=== PATIENT | male | born 1945 | race Caucasian/White ===

== ENCOUNTER 2017-11-01 00:37 | Outpatient (CLI) | payer MEDICARE, SELFPAY ==
--- NOTE | 2017-11-01 10:00 | DI.US_ITS ---
SYMPTOMS/DIAGNOSIS: PAIN, NERVE BLOCK PAIN CLINIC NEEDLE GUIDANCE: Sonography was utilized by Dr. Leslie during the performance of a right lateral femoral cutaneous nerve block. Please refer to the procedure report for complete details.
[2017-11-01 10:12] VITALS: BP 132/83; PULSE 67; RESP 20; TEMP 37.2; O2SAT 94
[2017-11-01] MEDS: methylPREDNISolone ACETATE 40 MG/ML VIAL IJ (11:06)
[2017-11-01] MEDS: Bupivacaine 0.5% Pres-Free 30 ML VIAL IJ (11:09)
[2017-11-01 11:13] VITALS: BP 123/72; PULSE 68; RESP 16; O2SAT 97
--- NOTE | 2017-11-01 11:17 | PDOC.PAIN ---
Pain Clinic Procedure Note Current Active Problems Problem Status Onset Meralgia paresthetica of right side Chronic ULTRASOUND GUIDED {RIGHT LATERAL FEMORAL CUTANEOUS INJECTIONS Pre-Procedural Evaluation: MERA BHANDARI has been referred to the [facility] for an Ultrasound Guided {right/lateral femoral cutaneous injection injection for a chief complaint of right lateral thigh pain. Pre-procedure Pain ScoreL {2/10 Patient was interviewed and the medical record reviewed. There were no medical, pharmacologic, radiographic, or other structural contraindications to preforming an ultrasound guided injection. Risks and expected side effects as well as potential benefits of the procedure were reviewed. The patient consent form was signed and witnessed. Standard time-out procedure was performed. The use of direct ultrasound visualization of the needle (rather than a non-guided injection) was required to increase patient safety by excluding inadvertent intramuscular, intratendinous, or intraneural needle placement and minimizing bleeding by avoiding osteochondral or vascular injury from the needle. Additionally, the increased accuracy of placement may increase clinical effectiveness and will allow higher diagnostic specificity when evaluating effectiveness of this injection. Procedure Description: The patient was placed in the {supine} position and automated blood pressure cuff and pulse oximeter applied for monitoring during the procedure and recorded in the medical record. Pre-injection ultrasound scanning of the area of interest was performed using {high-frequency US TRANSDUCER} transducer, identifying relevant anatomy, landmarks, and neurovascular structures allowing for optimal needle path. The site was then prepared in the usual sterile fashion, using thorough Chlorhexadine preparation of the skin and sterile draping. The same ultrasound transducer was then passed into the sterile field using sterile probe cover and sterile ultrasound gel. The injection target was again visualized. (Right sartorius muscle was identified with lateral femoral cutaneous nerve identified lateral to that) Skin and subcutaneous tissues were anesthetized with {1 } mL of 1% Lidocaine. A { 22/ guage needle} inch needle was placed under live ultrasound guidance, using an {in-plane} approach, to the target area. After visualization of the needle tip at the target area, a mixture of 3 mL's 0.5% bupivacaine} and 1 mL {40 mg Depo-Medrol}, totaling 4 mL of injectate was delivered after negative aspiration for blood. Ultrasound images were captured and stored for documentation purposes. Post-procedure Pain Score: {1/10 Vital signs were stable throughout the procedure and were as recorded in the docflowsheet by the nursing staff. Follow up plans and appointments were discussed with the patient.Post procedure instruction was given as documented in nursing documentation and having met discharge criteria, they were discharged from the [facility] Management [facility]. COMMENTS: Patient will follow-up as needed. He is complaining of bilateral knee pain. He had a right total knee replacement. He does not not want to have this done on the left side because of the results on the right side. I am going to have him follow-up with Dr. Morrison for evaluation and possible injection into the left knee.
--- NOTE | 2017-11-01 11:24 | PDOC.PAIN_ITS ---
Pain Clinic Procedure Note Current Active Problems Problem Status Onset Meralgia paresthetica of right side Chronic ULTRASOUND GUIDED {RIGHT LATERAL FEMORAL CUTANEOUS INJECTIONS Pre-Procedural Evaluation: MERA BHANDARI has been referred to the [facility] for an Ultrasound Guided {right/lateral femoral cutaneous injection injection for a chief complaint of right lateral thigh pain. Pre-procedure Pain ScoreL {2/10 Patient was interviewed and the medical record reviewed. There were no medical , pharmacologic, radiographic, or other structural contraindications to preforming an ultrasound guided injection. Risks and expected side effects as well as potential benefits of the procedure were reviewed. The patient consent form was signed and witnessed. Standard time-out procedure was performed. The use of direct ultrasound visualization of the needle (rather than a non- guided injection) was required to increase patient safety by excluding inadvertent intramuscular, intratendinous, or intraneural needle placement and minimizing bleeding by avoiding osteochondral or vascular injury from the needle. Additionally, the increased accuracy of placement may increase clinical effectiveness and will allow higher diagnostic specificity when evaluating effectiveness of this injection. Procedure Description: The patient was placed in the {supine} position and automated blood pressure cuff and pulse oximeter applied for monitoring during the procedure and recorded in the medical record. Pre-injection ultrasound scanning of the area of interest was performed using { high-frequency US TRANSDUCER} transducer, identifying relevant anatomy, landmarks, and neurovascular structures allowing for optimal needle path. The site was then prepared in the usual sterile fashion, using thorough Chlorhexadine preparation of the skin and sterile draping. The same ultrasound transducer was then passed into the sterile field using sterile probe cover and sterile ultrasound gel. The injection target was again visualized. (Right sartorius muscle was identified with lateral femoral cutaneous nerve identified lateral to that) Skin and subcutaneous tissues were anesthetized with {1 } mL of 1% Lidocaine. A { 22/ guage needle} inch needle was placed under live ultrasound guidance, using an {in-plane} approach, to the target area. After visualization of the needle tip at the target area, a mixture of 3 mL's 0.5% bupivacaine} and 1 mL { 40 mg Depo-Medrol}, totaling 4 mL of injectate was delivered after negative aspiration for blood. Ultrasound images were captured and stored for documentation purposes. Post-procedure Pain Score: {1/10 Vital signs were stable throughout the procedure and were as recorded in the docflowsheet by the nursing staff. Follow up plans and appointments were discussed with the patient.Post procedure instruction was given as documented in nursing documentation and having met discharge criteria, they were discharged from the [facility] Management [facility]. COMMENTS: Patient will follow-up as needed. He is complaining of bilateral knee pain. He had a right total knee replacement. He does not not want to have this done on the left side because of the results on the right side. I am going to have him follow-up with Dr. Morrison for evaluation and possible injection into the left knee.
== END 2017-11-01 00:57 ==
PROVIDERS: PCP Internal Medicine; Visit Provider Anesthesiology Pain Medicine
DX: G57.11 Meralgia paresthetica, right lower limb (principal)
CPT/HCPCS: 64450; 76942; J1030

== ENCOUNTER 2017-12-14 12:36 | Outpatient (CLI) | payer MEDICARE, SELFPAY ==
[2017-12-14 12:42] VITALS: BP 122/73; PULSE 74; RESP 18; TEMP 36.9; O2SAT 96
--- NOTE | 2017-12-14 13:08 | DI.US_ITS ---
SYMPTOMS/DIAGNOSIS: RT THIGH PAIN, RT LATERAL FEMORAL CUTANEOUS NERVE INJECTION ULTRASOUND GUIDANCE FOR PAIN CLINIC: Images submitted from the pain clinic were carried out in conjunction with ultrasound needle guidance in conjunction with a right lateral femoral cutaneous nerve injection. Please see Dr. Leslie's report for further information.
[2017-12-14] MEDS: methylPREDNISolone ACETATE 40 MG/ML VIAL IJ (13:24)
--- NOTE | 2017-12-14 13:24 | PDOC.PAIN ---
Pain Clinic Procedure Note Current Active Problems Problem Status Onset Meralgia paresthetica of right side Chronic ULTRASOUND GUIDED {RIGHT LATERAL FEMORAL CUTANEOUS NERVE INJECTION Pre-Procedural Evaluation: MERA BHANDARI has been referred to the [facility] for an Ultrasound Guided {right LATERAL FEMORAL CUTANEOUS NERVE INJECTION injection for a chief complaint of right thigh pain and numbness with a diagnosis of meralgia paresthetica. Pre-procedure Pain ScoreL {6/10 Patient was interviewed and the medical record reviewed. There were no medical, pharmacologic, radiographic, or other structural contraindications to preforming an ultrasound guided injection. Risks and expected side effects as well as potential benefits of the procedure were reviewed. The patient consent form was signed and witnessed. Standard time-out procedure was performed. The use of direct ultrasound visualization of the needle (rather than a non-guided injection) was required to increase patient safety by excluding inadvertent intramuscular, intratendinous, or intraneural needle placement and minimizing bleeding by avoiding osteochondral or vascular injury from the needle. Additionally, the increased accuracy of placement may increase clinical effectiveness and will allow higher diagnostic specificity when evaluating effectiveness of this injection. Procedure Description: The patient was placed in the {supine} position and automated blood pressure cuff and pulse oximeter applied for monitoring during the procedure and recorded in the medical record. Pre-injection ultrasound scanning of the area of interest was performed using {high-frequency US TRANSDUCER} transducer, identifying relevant anatomy, landmarks, and neurovascular structures allowing for optimal needle path. The site was then prepared in the usual sterile fashion, using thorough Chlorhexadine preparation of the skin and sterile draping. The same ultrasound transducer was then passed into the sterile field using sterile probe cover and sterile ultrasound gel. The injection target was again visualized. The lateral cutaneous nerve was identified at the lateral edge of the sartorius muscle Skin and subcutaneous tissues were anesthetized with {1 mL of 1% Lidocaine. A { 22 guage needle} inch needle was placed under live ultrasound guidance, using an {in-plane} approach, to the target area. After visualization of the needle tip at the target area, a mixture of 4 mL {0.5% bupivacaine } and 1 mL {40 mg Depo-Medrol}, totaling 5 mL of injectate was delivered after negative aspiration for blood. Ultrasound images were captured and stored for documentation purposes. Post-procedure Pain Score: {0/10 Vital signs were stable throughout the procedure and were as recorded in the docflowsheet by the nursing staff. Follow up plans and appointments were discussed with the patient.Post procedure instruction was given as documented in nursing documentation and having met discharge criteria, they were discharged from the [facility] Management [facility]. COMMENTS: Patient will follow-up as needed. Long-lasting relief could repeat if not we will discuss other options or consideration for DRG or peripheral nerve stimulation
[2017-12-14] MEDS: Bupivacaine 0.5% Pres-Free 30 ML VIAL IJ (13:25)
[2017-12-14 13:26] VITALS: BP 126/77; PULSE 87; RESP 17; O2SAT 94
--- NOTE | 2017-12-14 13:29 | PDOC.PAIN_ITS ---
Pain Clinic Procedure Note Current Active Problems Problem Status Onset Meralgia paresthetica of right side Chronic ULTRASOUND GUIDED {RIGHT LATERAL FEMORAL CUTANEOUS NERVE INJECTION Pre-Procedural Evaluation: MERA BHANDARI has been referred to the [facility] for an Ultrasound Guided {right LATERAL FEMORAL CUTANEOUS NERVE INJECTION injection for a chief complaint of right thigh pain and numbness with a diagnosis of meralgia paresthetica. Pre-procedure Pain ScoreL {6/10 Patient was interviewed and the medical record reviewed. There were no medical , pharmacologic, radiographic, or other structural contraindications to preforming an ultrasound guided injection. Risks and expected side effects as well as potential benefits of the procedure were reviewed. The patient consent form was signed and witnessed. Standard time-out procedure was performed. The use of direct ultrasound visualization of the needle (rather than a non- guided injection) was required to increase patient safety by excluding inadvertent intramuscular, intratendinous, or intraneural needle placement and minimizing bleeding by avoiding osteochondral or vascular injury from the needle. Additionally, the increased accuracy of placement may increase clinical effectiveness and will allow higher diagnostic specificity when evaluating effectiveness of this injection. Procedure Description: The patient was placed in the {supine} position and automated blood pressure cuff and pulse oximeter applied for monitoring during the procedure and recorded in the medical record. Pre-injection ultrasound scanning of the area of interest was performed using { high-frequency US TRANSDUCER} transducer, identifying relevant anatomy, landmarks, and neurovascular structures allowing for optimal needle path. The site was then prepared in the usual sterile fashion, using thorough Chlorhexadine preparation of the skin and sterile draping. The same ultrasound transducer was then passed into the sterile field using sterile probe cover and sterile ultrasound gel. The injection target was again visualized. The lateral cutaneous nerve was identified at the lateral edge of the sartorius muscle Skin and subcutaneous tissues were anesthetized with {1 mL of 1% Lidocaine. A { 22 guage needle} inch needle was placed under live ultrasound guidance, using an {in-plane} approach, to the target area. After visualization of the needle tip at the target area, a mixture of 4 mL {0.5% bupivacaine } and 1 mL {40 mg Depo-Medrol}, totaling 5 mL of injectate was delivered after negative aspiration for blood. Ultrasound images were captured and stored for documentation purposes. Post-procedure Pain Score: {0/10 Vital signs were stable throughout the procedure and were as recorded in the docflowsheet by the nursing staff. Follow up plans and appointments were discussed with the patient.Post procedure instruction was given as documented in nursing documentation and having met discharge criteria, they were discharged from the [facility] Management [facility]. COMMENTS: Patient will follow-up as needed. Long-lasting relief could repeat if not we will discuss other options or consideration for DRG or peripheral nerve stimulation
== END 2017-12-14 12:56 ==
PROVIDERS: PCP Internal Medicine; Visit Provider Anesthesiology Pain Medicine
DX: G57.11 Meralgia paresthetica, right lower limb (principal); G89.29 Other chronic pain
CPT/HCPCS: 64450; 76942; J1030

== ENCOUNTER 2020-04-10 02:41 | Outpatient (CLI) | payer MEDICARE, SELFPAY ==
--- NOTE | 2020-04-10 | DI.MRI_ITS ---
EXAM: MR LUMBAR SPINE WO CLINICAL HISTORY: INTERVERTEBRAL DISC DISORDER WITH RADICULOPATHY,M51.16. TECHNIQUE: Multiplanar multisequence MRI of the Lumbar spine was performed. COMPARISON: MR MRI - LUMBAR SPINE WO CONTRAST from 05/10/2016 MR MR L-SPINE W/O from 05/10/2016 FINDINGS: Bones: The last intervertebral disc space is designated the L5/S1 level for the numbering purpose of this examination. The vertebral body heights are well maintained. Alignment is satisfactory. There is a hemangioma in the L3 vertebral body. Endplate degenerative signal changes are seen at multiple levels of the lumbar spine. Cord: The conus tip ends at the L1 level. It is of normal size and signal intensity. T12-L1: No disc herniations or bulges are present. No central spinal canal or neural foraminal stenos is. L1-2: No disc herniations or bulges are present. No central spinal canal or neural foraminal stenosis . L2-3: There is a mild diffuse disc bulge. No central spinal canal or neural foraminal stenosis. L3-4: Mild diffuse disc bulge. No significant central spinal canal stenosis. Mild bilateral narrowi ng of the neural foramen. L4-5: There is a diffuse disc bulge. There are hypertrophic changes of the facets and ligamentum fla vum. The findings contribute to cause moderate central spinal canal stenosis. There is moderate rig ht and mild left neural foraminal stenosis. L5-S1: No disc herniations or bulges are present. No central spinal canal or neural foraminal stenosi s.Mild hypertrophic changes of the facets are noted. Soft tissues: The visualized SI joints and sacrum are well maintained. The paraspinal soft tissues ar e unremarkable. Note is made of multiple right renal cysts. The largest measures 2 cm. It is unchan ged compared to the prior examination. No further workup is recommended. IMPRESSION: Multilevel degenerative changes in the lumbar spine resulting in central spinal canal neural foramina l stenosis as described above. The findings are most marked at the L4-5 disc level as described abov e. DATA REPOSITORY:
== END 2020-04-10 03:01 ==
PROVIDERS: PCP Nurse Practitioner; Visit Provider Anesthesiology Pain Medicine
DX: M47.26 Other spondylosis with radiculopathy, lumbar region (principal)
CPT/HCPCS: 72148

== ENCOUNTER 2021-11-05 10:32 | Outpatient (CLI) | payer MEDICARE, SELFPAY ==
--- NOTE | 2021-11-05 06:00 | DI.RAD_ITS ---
Exam(s) XR PAIN CLINIC LUMBAR SP 2V EXAM: XR PAIN CLINIC LUMBAR SP 2V CLINICAL HISTORY: Dx: Lumbar Spondylosis TECHNIQUE: 2D and realtime digital imaging was performed. CONTRAST MATERIAL: Refer to procedure report. COMPARISON: No exams were available for comparison FINDINGS: Fluoroscopy was provided for Dr. Garcia during the performance of a lumbar medial branch block. Blanca small refer to the procedure report for complete details. Ka,r=20.6 mGy IMPRESSION:
[2021-11-05 10:44] VITALS: BP 140/78; PULSE 84; RESP 20; TEMP 37; O2SAT 99
--- NOTE | 2021-11-05 11:20 | PDOC.PAIN_ITS ---
Pain Clinic Procedure Note Procedure Note Procedure Note: Lumbar/Sacral Medial Branch Blocks MERA BHANDARI has been referred to the [facility] for lumbar/sacral medial branch blocks. COMMENTS: He was seen by Dr. Leslie at . I spoke to Dr. Leslie, who wanted this diagnostic procedure completed. The patient preferred to come here as opposed to . Pre-procedure pain VAS was 8/10. Dx: Lumbosacral spondylosis without myelopathy Patient was interviewed and the medical record reviewed. There were no medical, pharmacologic, radiographic or other structural contraindications to attempting fluoroscopically guided local anesthetic lumbar/sacral medial branch blocks. Risks and expected side effects as well as potential benefit of the procedure were reviewed and voiced concerns addressed. The printed consent form was signed and witnessed. Standard time-out procedure was performed. Patient was placed in the prone position on the fluoroscopy table and automated blood pressure cuff and pulse oximeter applied. The skin entry points for approaching the anatomic target points of the segmental medial branches of bilateral L3, L4, and L5DR were identified with fluoroscopy and marked. Following thorough Chlorhexadine preparation of the skin and draping and 1% lidocaine infiltration of the skin entry points and subcutaneous tissues, a 25 gauge 3.5 spinal needle was placed under fluoroscopic guidance down on to the target point for each respective segmental medial branch.Position was confirmed in A/P, oblique and lateral views with 0.25ml of omnipaque 240. At this point I injected 0.5ml of 0.5% Bupivacaine at each segmental sensory nerve. Vital signs were stable throughout the procedure and were as recorded in the docflowsheet by the nursing staff. Follow up plans and appointments were discussed and was instructed to keep careful note of how the usual pain was modified by these injections. Specifically was asked to keep a pain diary for the next 24 hours using a numeric pain scale of 0-10 and report these results at the follow-up visit. Post procedure instruction was given as documented in the nursing documentation and having met discharge criteria. Patient was discharged from the Pain Management Center. Based on the medial branches blocked today, if the patient has adequate relief and we are able to proceed to radiofrequency ablation, the treatment should result in the denervation of the bilateral L4-L5 and L5-S1 FACET JOINTS. We would expect to denervate a total of 4 facets during the radiofrequency ablation. COMMENTS: Post-procedure pain VAS was 4/10. Hal Mansfield, DO, MPH [facility]-Pain Management [facility] CC: Mary Dodson
[2021-11-05] MEDS: Bupivacaine 0.5% Pres-Free 10 ML VIAL IJ (11:30)
[2021-11-05] MEDS: Omnipaque 240 MG/ML 50 ML BTL IJ (11:30)
[2021-11-05 11:31] VITALS: BP 130/73; PULSE 83; RESP 22; O2SAT 94
== END 2021-11-05 10:33 | disposition home or self-care (01) ==
LOC: PC 10:33
PROVIDERS: PCP Nurse Practitioner; Visit Provider Preventive Medicine Occupational Medicine
DX: M47.817 Spondylosis without myelopathy or radiculopathy, lumbosacral region (principal)
CPT/HCPCS: 64493; 64494; 72100; Q9967

== ENCOUNTER 2021-12-03 10:54 | Outpatient (CLI) | payer MEDICARE, SELFPAY ==
--- NOTE | 2021-12-03 06:00 | DI.RAD_ITS ---
Exam(s) XR PAIN CLINIC LUMBAR SP 2V EXAM: XR PAIN CLINIC LUMBAR SP 2V CLINICAL HISTORY: Dx: Lumbar Spondylosis TECHNIQUE: 2D and realtime digital imaging was performed. CONTRAST MATERIAL: Refer to procedure report. COMPARISON: No exams were available for comparison FINDINGS: Fluoroscopy was provided for Dr. Garcia during the performance of a lumbar injections. Please refer t o the procedure report for complete details. Ka,r=16 mGy IMPRESSION:
[2021-12-03 11:28] VITALS: BP 143/83; PULSE 69; RESP 20; TEMP 36.5; O2SAT 95
[2021-12-03] MEDS: Omnipaque 240 MG/ML 50 ML BTL IJ (12:16)
[2021-12-03] MEDS: Lidocaine 2% Pres-Free 5 ML VIAL IJ (12:16)
[2021-12-03 12:17] VITALS: BP 138/78; PULSE 73; RESP 22; O2SAT 96
--- NOTE | 2021-12-07 14:04 | PDOC.PAIN_ITS ---
Date of service: 12/03/21 Time of Service: 13:00 Pain Clinic Procedure Note Procedure Note Procedure Note: Lumbar/Sacral Medial Branch Blocks Liam Baker has been referred to the Pain Management Center for lumbar/sacral medial branch blocks. COMMENTS: He did very well with his first LMBBs. Pre-procedure pain VAS = 6/10. Dx: Lumbosacral spondylosis without myelopathy Patient was interviewed and the medical record reviewed. There were no medical, pharmacologic, radiographic or other structural contraindications to attempting fluoroscopically guided local anesthetic lumbar/sacral medial branch blocks. Risks and expected side effects as well as potential benefit of the procedure were reviewed and voiced concerns addressed. The printed consent form was signed and witnessed. Standard time-out procedure was performed. Patient was placed in the prone position on the fluoroscopy table and automated blood pressure cuff and pulse oximeter applied. The skin entry points for approaching the anatomic target points of the segmental medial branches of bilateral L3-L5 were identified with anfluoroscopy and marked. Following thorough Chlorhexadine preparation of the skin and draping and 1% lidocaine infiltration of the skin entry points and subcutaneous tissues, a 22 gauge spinal needle was placed under fluoroscopic guidance down on to the target point for each respective segmental medial branch.Position was confirmed in A/P, oblique and lateral views with 0.25ml of omnipaque 240. Coult be this method .5ml 0.5% Bupivacaine was injected or 1% Lidocaine. Vital signs were stable throughout the procedure and were as recorded in the docflowsheet by the nursing staff. Follow up plans and appointments were discussed and was instructed to keep careful note of how the usual pain was modified by these injections. Specifically was asked to keep a pain diary for the next 24 hours using a numeric pain scale of 0-10 and report these results at the follow-up visit. Post procedure instruction was given as documented in the nursing documentation and having met discharge criteria. Patient was discharged from the Pain Management Center. Based on the medial branches blocked today, if the patient has adequate relief and we are able to proceed to radiofrequency ablation, the treatment should result in the denervation of the bilateral L4-L5 and L5-S1 FACET JOINTS. We would expect to denervate a total of 4 facets during the radiofrequency ablation. COMMENTS: Post-procedure pain VAS was 1/10. Hal Garcia DO, MPH [facility]-Pain Management [facility] for [facility] Management CC: Mary Dodson
== END 2021-12-03 10:55 | disposition home or self-care (01) ==
LOC: PC 10:54
PROVIDERS: PCP Nurse Practitioner; Visit Provider Preventive Medicine Occupational Medicine
DX: M47.817 Spondylosis without myelopathy or radiculopathy, lumbosacral region (principal); M54.50 Low back pain, unspecified
CPT/HCPCS: 64493; 64494; 72100; Q9967

== ENCOUNTER 2022-01-13 12:40 | Outpatient (CLI) | payer MEDICARE, SELFPAY ==
--- NOTE | 2022-01-13 06:00 | DI.RAD_ITS ---
Exam(s) XR PAIN CLINIC LUMBAR SP 2V EXAM: XR PAIN CLINIC LUMBAR SP 2V CLINICAL HISTORY: Dx: Lumbar Spondylosis TECHNIQUE: 2D and realtime digital imaging was performed. COMPARISON: No exams were available for comparison FINDINGS: C-arm fluoroscopy is utilized by Dr. Garcia during reported radiofrequency ablation. Hard copy shows n eedle placement bilaterally at what appear to be the L3-4, L4-5, and L5-S1 levels. IMPRESSION: RADIATION DOSE DELIVERED: edmond Maradiaga=26.7 mGy
[2022-01-13 13:00] VITALS: BP 144/83; PULSE 65; RESP 20; TEMP 36.6; O2SAT 96
[2022-01-13] MEDS: fentaNYL 100 MCG/2 ML VIAL IVP (13:58)
[2022-01-13] MEDS: Midazolam 2 MG/2 ML VIAL IVP (13:58)
[2022-01-13 14:44] VITALS: BP 129/78; PULSE 65; RESP 18; O2SAT 96
[2022-01-13] MEDS: methylPREDNISolone ACETATE 40 MG/ML VIAL IJ (14:48)
[2022-01-13] MEDS: Lidocaine 2% Pres-Free 5 ML VIAL IJ (14:49)
[2022-01-13] MEDS: Bupivacaine 0.5% Pres-Free 10 ML VIAL IJ (14:49)
--- NOTE | 2022-01-13 14:59 | PDOC.PAIN ---
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 Liam Baker was brought into the fluoroscopy suite and positioned into the prone position on the fluoroscopy table and allowed to adjust to a position of comfort. A grounding pad was placed on the right thigh. The lumbar region was widely prepped with a chloraprep solution, allowed to air dry and draped in standard sterile surgical fashion. Local anesthesia was provided by 4 mL of 2% Lidocaine delivered with a 25g needle. A 17g 100 mm radiofrequency introducer needle was placed to the planned anatomic targets guided with intermittent fluoroscopy with a perpendicular approach to terminally place at the junction of the superior articular process and the transverse process of the bilateral L4 L5, the base of the sacral ala on the bilateral for the L5 medial branch nerve and the area between base of the sacral ala to the S1 foramen bilaterally. The stylets were removed and radiofrequency probes with a 4mm active tip were then inserted. Needle tip position of the probes was verified in the AP, oblique, and lateral views. At each site, the medial branch nerve was stimulated at 2 Hz to a maximum 1-2 volts determined to finalize safe needle and electrode placement. The patient was awake and responsive during this portion of the procedure. Each target was anesthetized with 1-2 mL of 2 % Lidocaine for anesthesia for lesioning and then each target was lesioned at 80 degrees Celsius for 2 minutes and 30 seconds. Tissue impedences were noted to be between 250 and 500 Ohms. Electrodes and needles were then removed and bandages placed over the needle placement sites, the patient then returned to the supine position on a stretcher and transported to the recovery room without hemodynamic, neurologic, or allergic reactions. Fluoroscopic images were printed for hard copy recording and digitally archived. POST PROCEDURE EVALUATION: IMPRESSION: 1. Summary of procedure. Medication given is documented in the MAR. 2. The patient will be contacted in 1-3 weeks 3. Estimated Blood Loss: <5 mls 4. Fluoroscopy time: Documented in the EMR. Follow up plans and appointments were discussed with the Liam . Post procedure instruction was given as documented in nursing documentation and having met discharge criteria, Liam was discharged from the [facility] Management [facility]. COMMENTS: No apparent complications. Post-procedure pain: VAS= 0/10. F/U with our office as needed. Hal Garcia DO, MPH [facility]-Pain Management [facility]
== END 2022-01-13 12:41 | disposition home or self-care (01) ==
LOC: PC 12:40
PROVIDERS: PCP Nurse Practitioner; Visit Provider Preventive Medicine Occupational Medicine
DX: M47.817 Spondylosis without myelopathy or radiculopathy, lumbosacral region (principal); M54.50 Low back pain, unspecified
CPT/HCPCS: 64635; 64636; 72100; J1030; J2250; J3010

== ENCOUNTER 2023-06-22 09:11 | Outpatient (CLI) | payer MEDICARE, SELFPAY ==
[2023-06-22 09:28] VITALS: BP 127/71; PULSE 75; RESP 20; TEMP 36.4; O2SAT 100
[2023-06-22 10:17] VITALS: BP 147/90; PULSE 77; RESP 22; O2SAT 93
--- NOTE | 2023-06-22 10:17 | DI.RAD_ITS ---
Exam(s) XR PAIN CLINIC SACRIOILIAC 2V EXAM: XR PAIN CLINIC SACRIOILIAC 2V CLINICAL HISTORY: DX: Sacroiliac dysfunction TECHNIQUE: 2D and realtime digital imaging was performed. CONTRAST MATERIAL: Refer to procedure report. COMPARISON: No exams were available for comparison FINDINGS: Fluoroscopy was provided for Dr. Garcia during the performance of a bilateral sacroiliac joint injecti on. Please refer to the procedure report for complete details. Ka,r=11.5 mGy IMPRESSION: RADIATION DOSE DELIVERED: 0.0 0.0 0
[2023-06-22] MEDS: Omnipaque 240 MG/ML 50 ML BTL IJ (10:18)
[2023-06-22] MEDS: Nerve Block Tray 1 EACH MC (10:19)
[2023-06-22] MEDS: methylPREDNISolone ACETATE 40 MG/ML VIAL IJ (10:19)
--- NOTE | 2023-06-27 06:01 | PDOC.PAIN_ITS ---
Date of service: 06/22/23 Time of Service: 10:10 Pain Managment Procedure Note Procedure Note Procedure Note: PROCEDURE NOTE RIGHT BILATERAL INTRA-ARTICULAR SACROILIAC JOINT INJECTION Date of Service: June 22, 2023 Patient: Liam Baker Provider: Hal Garcia DO, MPH COMMENTS: I previously evaluated the patient in the office and their symptoms in relation to the sacroiliac joint pain have remained the same. Pre-operative diagnosis: Sacroiliac joint dysfunction Post-operative diagnosis: Same Pre-procedure pain: VAS= 7/10 Liam Baker has been referred to our [facility] for a Bilateral intra-articular Sacroiliac joint injection. Liam was interviewed and the medical record reviewed. There were no medical, pharmacologic, radiographic or other structural contraindications to attempting a fluoroscopically-guided, contrast-enhanced, intra-articular Sacroiliac joint injection. The risks, benefits, and potential side effects of this procedure were reviewed with the patient. Questions and concerns were addressed. After it was clear that Liam was fully informed about the procedure, the printed consent form was signed by the patient and myself. Liam was placed in the prone position on the fluoroscopy table and an automated blood pressure cuff, 3 lead EKG, and pulse oximeter were applied. The skin entry point for approaching the Left sacroiliac joint was identified under the most advantageous fluoroscopic view and marked. Following thorough Chlorhexadine preparation of the skin and draping with sterile surgical drapes, 2 mls of 1% lidocaine was infiltrated into the skin at the entry point and the surrounding subcutaneous tissues. Next, a 3.5 22G spinal needle was placed under fluoroscopic guidance into the Left sacroiliac joint. Intra-articular placement was confirmed by a clear arthrogram resulting from the injection of 0.25ml of Omnipaque-240. Next, 1 ml of Depo- Medrol 40 mg/ml was injected intra- articularly with an initial reproduction of a significant component of the usual pain. This was followed with 1 ml of 1% Lidocaine. The needle was then removed without difficulty. (49 ml of Omnipaque-240 was wasted). The exact procedure was completed on the opposite sacroiliac joint. Annettas vital signs were stable throughout the procedure and were as recorded in nursing records. Follow up plans and appointments were discussed with Liam. Post procedure instructions were given as documented in nursing records. Having met discharge criteria, Liam was discharged from the [facility]. COMMENTS: Post-procedure pain: VAS= 0/10. If the patient receives at least 50% improvement in pain and/or function for at least 3 months, this procedure can be repeated if needed. I personally performed this entire procedure. HAL GARCIA DO, MPH ABP[employer]-subspecialty board certification in Pain Medicine [facility] [facility]
== END 2023-06-22 09:12 | disposition home or self-care (01) ==
LOC: PC 09:11
PROVIDERS: PCP Family Medicine; Visit Provider Preventive Medicine Occupational Medicine
DX: M54.50 Low back pain, unspecified (principal); M46.1 Sacroiliitis, not elsewhere classified
CPT/HCPCS: 27096; 72200; J1010; Q9967

== ENCOUNTER 2025-01-22 10:39 | Outpatient (CLI) | payer MEDICARE, SELFPAY ==
[2025-01-22 10:46] VITALS: BP 147/78; PULSE 86; RESP 20; TEMP 37; O2SAT 98
--- NOTE | 2025-01-22 11:05 | PDOC.PAIN_ITS ---
Date of service: 01/22/25 Time of Service: 11:39 Pain Managment Procedure Note Procedure Note Procedure Note: ?Sacroiliac Joint Steroid Injection ? Location: Bilateral SI Joints? Pre-procedure Diagnosis: Sacroiliitis, not elsewhere classified - M46.1 ? Post-procedure Diagnosis:? The same as above ? Sedation:? NONE ? Medication: Depo-Medrol 40 mg, bupivacaine 0.5% 1 mL, Omnipaque 0.25 mL per joint ? Estimated blood loss:? less than 2 cc ? Surgeon:? Jean-Paul Leslie MD ? COMMENT: PT HAD GREATER THAN 50% RELIEF OF HER PAIN FOR GREATER THAN 6 MONTHS FROM PREVIOUS INJECTION ? Procedure Detail:? The procedure and potential risks were explained to the patient and informed written consent was obtained. The patient was escorted to the procedure room and placed in the prone position. Pillows were utilized fo r proper positioning and comfort. Time out was performed in the procedure room with nursing staff confirming the patient's identity, procedure to be performed, allergies, and any blood thinning or anti-platelet medications. The patient's lumbosacral area was prepped with ChloraPrep and draped in a sterile fashion. Sterile technique was maintained throughout the procedure.? Sterile gloves were used, a face mask was worn, and new single dose vials of all medications were used with the top being swabbed with alcohol and given time to dry prior to withdrawal of medication. Lidocaine 1% was used to anesthetize the skin. With fluoroscopic guidance, a 22-gauge 3.5 spinal needle was advanced into the posteroinferior aspect of the Bilateral SI joint. Confirmation of position of the needle tip was obtained with injection of 0.25cc of Omnipaque 240 contrast which showed appropriate spread .? Following negative aspiration, 40mg of methylprednisolone mixed with 1 mL of bupivacaine 0.5% was injected.? The needle was gently removed. ?The patient tolerated the procedure well and was discharged home with instructions.? Permanent images saved and recorded. Plan:? Follow up prn. PAIN PRE PROCEDURE 07/17 POST PROCEDURE 03/19 COMMENT: 60 % BETTER AFTER INJECTION Coding Conscious Sedation used for procedure: No CPT Codes: SI Joint Inj; incl Fluoro * BILATERAL* - [id number] ([id number]) Additional Codes: Date of Service () Diagnoses: Sacroiliitis, not elsewhere classified - M46.1
[2025-01-22 11:18] VITALS: PULSE 77; O2SAT 95
[2025-01-22 11:20] VITALS: PULSE 78; O2SAT 97
[2025-01-22 11:30] VITALS: PULSE 69; O2SAT 96
[2025-01-22] MEDS: Bupivacaine 0.5% Pres-Free 10 ML VIAL IJ (11:39)
[2025-01-22] MEDS: Omnipaque 240 MG/ML 50 ML BTL IJ (11:39)
[2025-01-22] MEDS: methylPREDNISolone ACETATE 40 MG/ML VIAL IJ (11:39)
[2025-01-22] MEDS: Nerve Block Tray 1 EACH MC (11:39)
--- NOTE | 2025-01-22 11:39 | DI.RAD_ITS ---
Exam(s) XR PAIN CLINIC SACRIOILIAC 2V EXAM: XR PAIN CLINIC SACRIOILIAC 2V CLINICAL HISTORY: DX: Sacroiliac Dysfunction TECHNIQUE: 2D and realtime digital imaging was performed. CONTRAST MATERIAL: Refer to procedure report. COMPARISON: No exams were available for comparison FINDINGS: Fluoroscopy was provided for Dr. Leslie during the performance of a bilateral sacroiliac joint injection. Please refer to the procedure report for complete details. Ka,r=10.1 mGy IMPRESSION: RADIATION DOSE DELIVERED: 0.0 0.0 0
== END 2025-01-22 10:40 | disposition home or self-care (01) ==
LOC: PC 10:39
PROVIDERS: PCP Family Medicine; Visit Provider Anesthesiology Pain Medicine
DX: M54.50 Low back pain, unspecified (principal); M46.1 Sacroiliitis, not elsewhere classified
CPT/HCPCS: 27096; 72200; J0665; J1010; Q9967